=== PATIENT | male | born 1970 | race Caucasian/White ===

== ENCOUNTER 2020-02-23 12:22 | Emergency (ER) | payer SELFPAY ==
[~2020-02-23 12:22] MED LIST: DICY10CA14; RANI150T8
--- NOTE | 2020-02-23 12:53 | NUR ---
CALLED PT IN THE TENT. PATIENT LEFT WITHOUT BEING TRAIGED AND SEEN BY DR. RAZO. NO FURTHER CARE PROVIDED FOR PATIENT.
== END 2020-02-23 12:53 | disposition left against medical advice (07) ==
LOC: MED 12:22
DX: Z53.21 Procedure and treatment not carried out due to patient leaving prior to being seen by health care provider (principal)